=== PATIENT | female | born 1955 | race Caucasian/White ===

== ENCOUNTER 2020-09-30 14:31 | Outpatient (RCR) | payer OTHER, SELFPAY ==
[2020-09-30] MEDS: COVID-19 VACC, MRNA(PFIZER)/PF 30 MCG/0.3 ML SYRINGE IM (08:52)
[2020-10-21] MEDS: COVID-19 VACC, MRNA(PFIZER)/PF 30 MCG/0.3 ML SYRINGE IM (08:40)
== END 2020-09-30 23:59 ==
LOC: IMMUN 14:31
PROVIDERS: PCP Student in an Organized Health Care Education/Training Program; Visit Provider Family Medicine
DX: Z23 Encounter for immunization (principal)
CPT/HCPCS: 0001A; 0002A; 91300